=== PATIENT | female | born 1965 | race Two or more races ===

== ENCOUNTER 2020-03-02 11:17 | Inpatient (IN) | payer MEDICAID, OTHER ==
[~2020-03-02] VITALS: Ht 175.3 cm; Wt 63.2 kg
[2020-03-02 11:56] LABS: Basophils # (auto) 0 10 ^3/uL (0-0.2); Basophils % (auto) 0.2 % (0.0-2.0); Eosinophils # (auto) 0.1 10 ^3/uL (0-0.8); Eosinophils % (auto) 0.6 % (0.0-7.0); Hematocrit 41.8 % (36.0-46.0); Hemoglobin 14.1 g/dL (12.2-16.2); Lymphocytes # (auto) 3.1 10 ^3/uL (0.4-5.4); Lymphocytes % (auto) 17.2 % (10.0-50.0); Mean Corpuscular Hemoglobin 30.5 pg (28.0-32.0); Mean Corpuscular Hgb Conc. 33.7 g/dL (32.0-36.0); Mean Corpuscular Volume 90.4 fL (80.0-100.0); Monocytes # (auto) 1.4 10 ^3/uL (0-1.3); Monocytes % (auto) 7.8 % (0.0-12.0); Neutrophils # (auto) 13.2 10 ^3/uL (1.6-8.6); Neutrophils % (auto) 74.2 % (37.0-80.0); Platelet Count (auto) 364 10^3/uL (140-450); Red Blood Cells 4.63 10^6/uL (4.0-5.20); Red Cell Distribution Width 13.2 % (11.8-14.3); White Blood Cell 17.8 10^3/uL (4.4-10.8)
[2020-03-02 12:16] LABS: Albumin 3.7 g/dL (3.4-5.0); Amylase 58 U/L (25-115); Anion Gap 7 (5-15); Blood Urea Nitrogen 10 mg/dL (7-18); Carbon Dioxide 24 mmol/L (21-32); Chloride 103 mmol/L (98-107); Glucose 127 mg/dL (74-106); Lipase 52 U/L (73-393); Magnesium 2.3 mg/dL (1.6-2.6); Potassium 3.7 mmol/L (3.5-5.1); Sodium 134 mmol/L (136-145)
[2020-03-02 12:23] LABS: Alanine Aminotransferase 14 U/L (13-56); Alkaline Phosphatase 113 U/L (45-117); Aspartate Aminotransferase 7 U/L (15-37); BUN/Creatinine Ratio 13.9; Bilirubin, Total 0.9 mg/dL (0.2-1.0); GFR African American 109 mL/min; GFR Non-African American 90 mL/min; Total Protein 7.9 g/dL (6.4-8.2)
[2020-03-02] MEDS ORDERED: ONDANSETRON HCL 4 MG/2 ML VIAL IV ONE (12:30)
[2020-03-02] MEDS ORDERED: MORPHINE SULF INJ 2 MG/ML SYRINGE 1ML IV ONE (12:30)
[2020-03-02] MEDS ORDERED: cefTRIAXone 1GM/50ML D5W 50 ML IV ONE (15:00)
[2020-03-02] MEDS ORDERED: SODIUM CHLORIDE 0.9% 1,000 ML IV ONE (15:00)
[2020-03-02] MEDS ORDERED: ONDANSETRON HCL 4 MG/2 ML VIAL IV PRN ×2 (15:30→19:00)
[2020-03-02] MEDS ORDERED: MORPHINE SULF INJ 2 MG/ML SYRINGE 1ML IV PRN (15:30)
[2020-03-02] MEDS ORDERED: SOD CHL 0.9%/ KCL 20MEQ 1,000 ML IV ONE (15:30)
[2020-03-02] MEDS ORDERED: NITROGLYCERIN 0.4 MG SL TAB SL PRN (15:30)
[2020-03-02 16:01] LABS: Urine Bacteria FEW /hpf (None Seen); Urine Blood Negative /uL (Negative); Urine Mucus FEW (None Seen); Urine WBC 6 /hpf (0 - 5)
[2020-03-02] MEDS: MORPHINE SULF INJ 2 MG/ML SYRINGE 1ML IV PRN (16:15)
[2020-03-02 17:06] LABS: INR 1.03 (0.9-1.15); Partial Thromboplastin Time 30.2 sec (23.0-31.2)
[2020-03-02] MEDS ORDERED: BUPIVACAINE 0.25% INJ 50ML VIAL ONE (18:10)
[2020-03-02] MEDS ORDERED: ceFAZolin 1GM/50ML 0 ML IV ONE (18:12)
[2020-03-02] MEDS ORDERED: SUCCINYLCHOLINE CHLORIDE 20 MG/ML 10ML VIAL IV ONE (18:33)
[2020-03-02] MEDS ORDERED: LIDOCAINE 1% (LOCAL ANESTH.) PF 5ml SDV ONE (18:34)
[2020-03-02] MEDS ORDERED: MIDAZOLAM HCL 1MG/1ML-2 ML VIAL ONE (18:36)
[2020-03-02] MEDS ORDERED: ROCURONIUM 10MG/ML 10ML VIAL IV ONE (18:37)
[2020-03-02] MEDS ORDERED: PROPOFOL 10 MG/ML 20 ML IV ONE (18:38)
[2020-03-02] MEDS ORDERED: METOCLOPRAMIDE HCL 5MG/ml INJ 2ml VIAL ONE (18:42)
[2020-03-02] MEDS ORDERED: fentaNYL CITRATE 100 MCG/2 ML VL ONE (18:50)
[2020-03-02] MEDS ORDERED: ePHEDrine SULFATE 50 MG/ML AMP IV PRN (19:00)
[2020-03-02] MEDS ORDERED: HYDROmorphone HCL 2 MG/ML VL IV PRN ×2 (19:00)
[2020-03-02] MEDS ORDERED: NALOXONE HCL 0.4 MG/ML VIAL IV PRN (19:00)
[2020-03-02] MEDS ORDERED: KETOROLAC TROMETH 30 MG/ML 1ML VIAL ONE (19:34)
[2020-03-02] MEDS ORDERED: NEOSTIGMINE 1 MG/ML INJ (10mg/10ML VIAL) ONE (19:39)
[2020-03-02] MEDS ORDERED: GLYCOPYRROLATE 0.2 MG/ML 1ML VIAL ONE (19:39)
--- NOTE | 2020-03-02 20:55 | NUR ---
Telemetry admit from OR AUGUSTINA SANDOVAL admitted to Telemetry unit after SBAR received. Patient oriented to Marlin Hanna, primary RN, unit, room, bed, and unit policies regarding patient care and visiting hours. Patient now on continuous telemetry monitoring, tele box #31 and telemetry reading on arrival to unit is NSR @70BPM. Patient placed on bedside oxygen 3LNC weighed by bed scale and encouraged to call if they need something. All questions and concerns addressed, patient verbalized understanding. Note: Patient is awake and alert x4. S/P Lap Appi, abdominal incision x3, michael drain x1 in place. Dressing is c/d/i. Patient denies pain.
[2020-03-02 21:00] VITALS: BP 100/57
[2020-03-02] MEDS: metroNIDAZOLE 500MG/100ML 100 ML IV SCH (21:49)
[2020-03-02 22:00] VITALS: BP 100/57
[2020-03-03] VITALS (7 sets, daily range): BP systolic 89–108; BP diastolic 53–67
--- NOTE | 2020-03-03 01:55 | NUR ---
AMBULATION PATIENT AMBULATED TO BATHROOM INDEPENDENTLY WITH NO S/S OF DISTRESS NOTED.
--- NOTE | 2020-03-03 02:30 | NUR ---
PHILLIP OUTPUT EMPTIED APPROXIMATELY 50ML SEROSANGUINEOUS DRAINAGE FROM PHILLIP DRAIN, RETURNED TO BULB SUCTION.
[2020-03-03] MEDS: MORPHINE SULF INJ 2 MG/ML SYRINGE 1ML IV PRN ×5 (02:32→23:30)
[2020-03-03] MEDS: metroNIDAZOLE 500MG/100ML 100 ML IV SCH ×3 (05:56→23:51)
--- NOTE | 2020-03-03 06:25 | NUR ---
PHILLIP OUTPUT EMPTIED APPROXIMATELY 25ML SEROUS DRAINAGE WITH SMALL CLOTS FROM PHILLIP DRAIN, RETURNED TO BULB SUCTION. DRESSING REMAINS C/D/I.
--- NOTE | 2020-03-03 07:00 | NUR ---
Opening Shift Note Assumed care of patient, awake and alert. No S/S of distress/SOB. Patient reporting pain at a tolerable level 3/10. Surgical sites x3, in tact, dry with no signs or erythema. PHILLIP bulb in tact with < 25 ml drainage. Patient reports no bowel movement or passing of gas at this time. Instructed on POC and to call for assist PRN. Patient verbalized understanding. Bed is in lowest position and the call light is within reach of the patient. Will continue to monitor for changes Q1hr and PRN.
[2020-03-03] MEDS: levoFLOXacin 500MG 100 ML IV SCH (10:06)
[2020-03-03] MEDS: PANTOPRAZOLE 40 MG/10 ML VIAL INJ IV SCH (10:06)
--- NOTE | 2020-03-03 10:25 | NUR ---
Dr. Way at bedside Dr. Way at bedside discussing the POC. Will advance diet as soon as the patient has a bowel movement. Patient verbalized understanding. All questions and concerns were addressed at this time.
[2020-03-03] MEDS: ACETAMINOPHEN 325 MG TAB PO PRN ×2 (10:58→18:12)
--- NOTE | 2020-03-03 11:44 | NUR ---
IV insertion Patient complaining of pain at the IV insertion site. IV appears to be leaking. Present IV D/C and new IV access obtained, via clean sterile technique by inserting 20 gauge catheter on the left hand after 1 attempt. IV secured properly. No trauma to site. Patient tolerated procedure well.
[2020-03-03] MEDS: SODIUM CHLORIDE 0.9% 1,000 ML IV SCH (14:52)
--- NOTE | 2020-03-03 16:00 | NUR ---
Pain complaints Patient complains of 10/10 in the abdominal area. Morphine given and reassessed. Patient reports she is still uncomfortable. Heat packs given and applied. Will continue to monitor.
[2020-03-03] MEDS ORDERED: LACTULOSE 20Gm/30ML SOLN PO PRN (18:45)
--- NOTE | 2020-03-03 18:46 | NUR ---
Pain report Call light answered with the patient reporting pain 10/10 stating that she feels like the pain is from "not being able to go to the bathroom and gas". Patient appears uncomfortable with facial grimacing and holding onto the side rails of the bed. on call pharmacy technician hospitalist called. Orders given.
--- NOTE | 2020-03-03 20:40 | NUR ---
PHILILP OUTPUT REMOVED APPROXIMATELY 25ML SEROSANGUINEOUS DRAINAGE FROM PHILLIP DRAIN. RETURNED DRAIN TO BULB SUCTION.
--- NOTE | 2020-03-03 20:45 | NUR ---
PAGE TO DR.R. BAUM. MESSAGE LEFT AT [employer] WITH CALLBACK INFORMATION. PATIENT REPORTS ABDOMINAL PAIN THROUGHOUT RADIATED UP TO RIGHT AND LEFT SHOULDER AND BACK, RATED LEVEL 10/10. PATIENT NOTED GRIPPING HAND RAILS. ABDOMEN APPEARS DISTENDED AND FIRM TO TOUCH, AFTER REMOVAL OF ABDOMINAL BINDER FOR ASSESSMENT. ABDOMEN IS TENDER TO TOUCH. INCISION SITES REMAIN ASYMPTOMATIC. DRESSING TO LOWER ABDOMEN IS C/D/I. PHILLIP DRAIN HAS SEROSANGUINEOUS DRAINAGE. BOWEL SOUNDS ARE ACTIVE. PATIENT DENIES BOWEL MOVEMENT AND MINIMAL FLATUS.
--- NOTE | 2020-03-03 22:04 | NUR ---
HOSPITALIST NOTIFIED OF PATIENT'S PERSISTENT ABDOMINAL PAIN RATED LEVEL 10/10 DOWN TO 8/10 AFTER MORPHINE ADMINISTRATION. SPOKE TO [employer] CHECKER AND PACKER, INFORMED HIM OF PATIENTS DISTENDED ABDOMEN S/P LAPAROSCOPIC APPENDECTOMY YESTERDAY. NEW ORDERS FOR ABDOMINAL ULTRASOUND STAT AND TORADOL 15MG IV X1, ORDERS READ BACK AND VERIFIED.
[2020-03-03] MEDS ORDERED: KETOROLAC TROMETH 30 MG/ML 1ML VIAL IV ONE (22:15)
--- NOTE | 2020-03-03 22:19 | NUR ---
US AT BEDSIDE FOR ABD US.
[2020-03-03] MEDS ORDERED: KETOROLAC TROMETH 30 MG/ML 1ML VIAL ONE (22:21)
--- NOTE | 2020-03-04 00:32 | NUR ---
VOMITING PATIENT VOMITED APPROXIMATELY 100ML OF BILE COLORED EMESIS IN EMESIS BAG.
--- NOTE | 2020-03-04 03:12 | NUR ---
AMBULATION PATIENT AMBULATED TO BATHROOM INDEPENDENTLY WITH NO S/S OF DISTRESS NOTED.
[2020-03-04 05:00] VITALS: BP 113/66
--- NOTE | 2020-03-04 05:38 | NUR ---
PHILLIP OUTPUT REMOVED APPROXIMATELY 40ML SEROSANGUINEOUS DRAINAGE FROM PHILLIP DRAIN. RETURNED DRAIN TO BULB SUCTION. PATIENT DENIES ABDOMINAL PAIN AT THIS TIME. STATES SHE FEELS BETTER. ASSESSED INCISION SITES UNDER ABDOMINAL BINDER, DRESSING TO LOWER ABDOMEN REMAINS C/D/I. UPPER 2 INCISION SITES REMAIN ASYMPTOMATIC. PATIENT REPORTS FLATUS THIS MORNING, DENIES BOWEL MOVEMENT.
[2020-03-04] MEDS: SODIUM CHLORIDE 0.9% 1,000 ML IV SCH ×2 (05:40→22:05)
[2020-03-04] MEDS: metroNIDAZOLE 500MG/100ML 100 ML IV SCH (05:42)
[2020-03-04 06:55] LABS: Basophils # (auto) 0 10 ^3/uL (0-0.2); Basophils % (auto) 0.3 % (0.0-2.0); Eosinophils # (auto) 0.3 10 ^3/uL (0-0.8); Eosinophils % (auto) 2.6 % (0.0-7.0); Hematocrit 33.9 % (36.0-46.0); Hemoglobin 11.4 g/dL (12.2-16.2); Lymphocytes # (auto) 1.4 10 ^3/uL (0.4-5.4); Lymphocytes % (auto) 11.1 % (10.0-50.0); Mean Corpuscular Hemoglobin 30.6 pg (28.0-32.0); Mean Corpuscular Hgb Conc. 33.5 g/dL (32.0-36.0); Mean Corpuscular Volume 91.4 fL (80.0-100.0); Monocytes # (auto) 0.8 10 ^3/uL (0-1.3); Neutrophils # (auto) 10.4 10 ^3/uL (1.6-8.6); Platelet Count (auto) 295 10^3/uL (140-450); Red Blood Cells 3.71 10^6/uL (4.0-5.20); Red Cell Distribution Width 13.5 % (11.8-14.3)
--- NOTE | 2020-03-04 07:00 | NUR ---
Opening Shift Note Assumed care of patient, awake and alert. No S/S of distress/SOB or pain. Patient reports no bowel movement but states her pain has improved throughout the night and she is passing gas. Instructed on POC and to call for assist PRN. Encouraged to increase her fluids and walk the unit. Patient verbalized understanding. Bed is in lowest position and the call light is within reach of the patient. Will continue to monitor for changes Q1hr and PRN.
[2020-03-04 07:07] LABS: Magnesium 2.4 mg/dL (1.6-2.6); Potassium 3.1 mmol/L (3.5-5.1)
[2020-03-04 07:14] LABS: Albumin 2.6 g/dL (3.4-5.0); BUN/Creatinine Ratio 27.9; Bilirubin, Total 0.5 mg/dL (0.2-1.0); Calcium 8.6 mg/dL (8.5-10.1); Total Protein 6.3 g/dL (6.4-8.2)
[2020-03-04 08:00] VITALS: BP 112/70
[2020-03-04 09:00] VITALS: BP 112/70
[2020-03-04] MEDS: levoFLOXacin 500MG 100 ML IV SCH (09:27)
[2020-03-04] MEDS: PANTOPRAZOLE 40 MG/10 ML VIAL INJ IV SCH (09:27)
[2020-03-04] MEDS ORDERED: POTASSIUM CHL 20 Meq TABLET PO ONE (09:30)
--- NOTE | 2020-03-04 09:45 | NUR ---
Dr. Way at bedside Dr. Way at bedside discussing the POC. All questions and concerns were addressed at this time. Ordered to advance diet to liquid. Patient verbalized understanding.
--- NOTE | 2020-03-04 12:58 | NUR ---
Bile Emesis Patient has vomited 750 ml of bile colored emesis. Dr. Fuentes called and requested that Dr. Garcia be updated on the patient' condition. Dr. Garcia was called at this time. Ordered to D/C Flagyl and return the patient to NPO. Will continue to monitor.
[2020-03-04 13:00] VITALS: BP 113/70
[2020-03-04] MEDS: MORPHINE SULF INJ 2 MG/ML SYRINGE 1ML IV PRN (13:22)
--- NOTE | 2020-03-04 15:08 | NUR ---
Nutrition Assessment Notes Please refer to link for full assessment notes. Est Energy needs: 0541-7912 kcals (25-30 kcal/kgBW) Est Protein needs: 54-67 gms/day (0.8-1.0 gm/kgBW) Will continue to monitor and reassess prn. Addendum: 03/04/20 at [address] Amended: Links added.
[2020-03-04] MEDS: KETOROLAC TROMETH 30 MG/ML 1ML VIAL IV PRN ×2 (15:11→22:05)
--- NOTE | 2020-03-04 18:08 | NUR ---
Dr. Garcia at bedside Dr. Garcia at bedside discussing the POC. Ordered to D/C fluids and keep one more night and watch the PHILLIP drainage amount and col0r. Advanced diet to clear liquids. Possible D/C tomorrow.
--- NOTE | 2020-03-04 19:30 | NUR ---
Opening Shift Note Assumed care of patient, awake and alert. No S/S of distress/SOB. Pain reported, pain management options discussed with patient. Instructed on POC and to call for assist PRN, will continue to monitor for changes Q1hr and PRN.
[2020-03-04 20:00] VITALS: BP 114/62
[2020-03-04 22:00] VITALS: BP 114/62
[2020-03-05] MEDS: MORPHINE SULF INJ 2 MG/ML SYRINGE 1ML IV PRN (00:27)
[2020-03-05 04:38] VITALS: BP 113/76
[2020-03-05 05:59] LABS: Basophils # (auto) 0 10 ^3/uL (0-0.2); Basophils % (auto) 0.4 % (0.0-2.0); Eosinophils # (auto) 0.6 10 ^3/uL (0-0.8); Eosinophils % (auto) 6.5 % (0.0-7.0); Hematocrit 31.6 % (36.0-46.0); Lymphocytes # (auto) 2.1 10 ^3/uL (0.4-5.4); Lymphocytes % (auto) 21.7 % (10.0-50.0); Mean Corpuscular Hemoglobin 31.5 pg (28.0-32.0); Mean Corpuscular Hgb Conc. 34.7 g/dL (32.0-36.0); Mean Corpuscular Volume 90.7 fL (80.0-100.0); Monocytes # (auto) 0.8 10 ^3/uL (0-1.3); Monocytes % (auto) 7.9 % (0.0-12.0); Neutrophils # (auto) 6.1 10 ^3/uL (1.6-8.6); Neutrophils % (auto) 63.5 % (37.0-80.0); Nucleated Red Blood Cells % 0.1 %; Platelet Count (auto) 308 10^3/uL (140-450); Red Blood Cells 3.48 10^6/uL (4.0-5.20); Red Cell Distribution Width 13.4 % (11.8-14.3); White Blood Cell 9.5 10^3/uL (4.4-10.8)
[2020-03-05 06:19] LABS: Potassium 3.3 mmol/L (3.5-5.1)
[2020-03-05 06:30] LABS: BUN/Creatinine Ratio 24.4; Calcium 8.1 mg/dL (8.5-10.1)
--- NOTE | 2020-03-05 07:20 | NUR ---
Opening Shift Note Assumed care of patient, awake and alert. No S/S of distress/SOB or pain. Instructed on POC and to call for assist PRN. Encouraged to increase her fluids and walk the unit. Patient verbalized understanding. Bed is in lowest position and the call light is within reach of the patient. Will continue to monitor for changes Q1hr and PRN.
--- NOTE | 2020-03-05 07:20 | NUR ---
PHILLIP drain PHILLIP drain 90 ml of serosanguineous fluid emptied at this time.
[2020-03-05 09:00] VITALS: BP 115/64
[2020-03-05] MEDS: PANTOPRAZOLE 40 MG/10 ML VIAL INJ IV SCH (10:43)
[2020-03-05] MEDS: levoFLOXacin 500MG 100 ML IV SCH (10:43)
[2020-03-05] MEDS ORDERED: POTASSIUM CHL 20 Meq TABLET PO ONE (12:30)
[2020-03-05] MEDS ORDERED: LEVO500T21 PO (12:36)
[2020-03-05] MEDS ORDERED: METR500T PO (12:36)
[2020-03-05] MEDS ORDERED: DOCU-94 PO (12:36)
[2020-03-05 13:00] VITALS: BP 124/70
--- NOTE | 2020-03-05 13:54 | NUR ---
Dr. Shanon Garcia at bedside Dr. Shanon Garcia at bedside. DC clearance obtained at this time. Plan is to discharge patient home and have her Follow up at Dr. Shanon Garcia office in 7-10 days to remove PHILLIP drain. Patient verbalized understanding.
[2020-03-05] MEDS: SODIUM CHLORIDE 0.9% 1,000 ML IV SCH (15:00)
[2020-03-05 17:00] VITALS: BP 124/66
[2020-03-05 17:15] VITALS: BP 124/66
--- NOTE | 2020-03-05 18:50 | NUR ---
PHILLIP drain output/dressing change 10 ml of serous fluid drained from PHILLIP at this time. Patient educated on how to empty PHILLIP drain at home. Patient was able to demonstrate education given and emptied the PHILLIP drain herself. Dressing change also performed at this time. Patient tolerated well.
--- NOTE | 2020-03-05 19:10 | NUR ---
DISCHARGE Discharge instructions given as ordered. Encourage to follow up with PMD as instructed. Information to call and schedule a follow up appointment with Surgeon Shanon Garcia also provided. Patient made aware that appointment could not be made because of weekend hours and instructed to call on Saturday. All questions and concerns addressed. Patient verbalized understanding. Medications from [facility] given to patient. IV removed with catheter intact, pressure dressing applied. Telemetry unit returned to ICU. Patient taken to vehicle via wheelchair with all personal belongings, accompanied by staff. No distress noted at time of departure.
== END 2020-03-05 19:10 | disposition home or self-care (01) | DRG 710 ==
LOC: ER 11:17 → TELE 11:18 → TELE-CENTR 20:55
PROVIDERS: ADMIT Nurse Practitioner Acute Care; ATTEND Internal Medicine
PROC: 0DNW4ZZ Release Peritoneum, Percutaneous Endoscopic Approach (ICD-10-PCS; 2020-03-02)
PROC: 0DTJ4ZZ Resection of Appendix, Percutaneous Endoscopic Approach (ICD-10-PCS; principal; 2020-03-02 18:26)
DX: A41.9 Sepsis, unspecified organism (principal); K35.33 Acute appendicitis with perforation, localized peritonitis, and gangrene, with abscess; E87.1 Hypo-osmolality and hyponatremia; Z20.828 Contact with and (suspected) exposure to other viral communicable diseases; K66.0 Peritoneal adhesions (postprocedural) (postinfection); E78.5 Hyperlipidemia, unspecified; E87.6 Hypokalemia; K56.7 Ileus, unspecified; F17.210 Nicotine dependence, cigarettes, uncomplicated; I70.8 Atherosclerosis of other arteries; K44.9 Diaphragmatic hernia without obstruction or gangrene
CPT/HCPCS: 36415; 71045; 74176; 76700; 80048; 80053; 80061; 81001; 82150; 83036; 83690; 83735; 84484; 85025; 85610; 85730; 86850; 86900; 86901; 87426; 93005; 96361; 96365; 96375; 99291; C9113; G0378; J0330; J0690; J0696; J1885; J1956; J2250; J2405; J2704; J3490

== ENCOUNTER 2020-03-16 08:42 | Emergency (ER) | payer MEDICAID ==
[~2020-03-16] VITALS: Ht 162.6 cm; Wt 56.7 kg
[~2020-03-16 08:42] MED LIST: DOCU-94 PO; LEVO500T21 PO; METR500T PO
[2020-03-16 09:26] VITALS: BP 99/54
== END 2020-03-16 10:33 | disposition home or self-care (01) ==
LOC: ER 08:42
DX: Z48.00 Encounter for change or removal of nonsurgical wound dressing (principal); Z88.0 Allergy status to penicillin